=== PATIENT | female | born 1965 | race Caucasian/White ===

== ENCOUNTER → 2016-12-03 | Outpatient (CLI) | payer OTHER ==
--- NOTE | ~2016-12-03 | 24HR ---
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 Study duration 24hrs and technical quality good. 2. Predominant rhtyhm sinus with average heart rate 80bpm, range 55-143. Longest RR interval 1.3sec. 3. No atrial fibrillation or atrial flutter. No heart block. No supraventricular ectopy or tachycardia. 4. Occasional, isolated premature ventricular complexes. No ventricular tachycardia. Ventricular ectopy represented 0.3% of total QRS complexes. 5. No symptoms reported. Electronically Signed On 12-08-2016 7:45:21 CDT by Jose Cruz Villar [email or web address] <ELECTRONICALLY SIGNED> By: Jose Cruz Villar MD, [facility] 12/08/16 0745 6 6 Jose Cruz Villar MD, [facility] /EPI
== END ==
LOC: CV 12:46
DX: R07.9 Chest pain, unspecified (principal)